=== PATIENT | male | born 1965 | race Caucasian/White ===

== ENCOUNTER 2019-02-15 06:57 | Day surgery (SDC) | payer OTHER, BC ==
[~2019-02-15] VITALS: Ht 165.1 cm; Wt 99.2 kg
[~2019-02-15 06:57] MED LIST: AMLO10 PO; Carvedilol12.5 MG PO; Hydrochlorothia25 MG PO; MELO7.5 PO; NIFE90ER PO; SPIR25 PO; VENL37.5ER PO; Zestril40 MG PO
--- NOTE | 2019-02-15 07:40 | NUR ---
PT ADMITTED TO [facility]. AGREES WITH PLANNED SURGER. LUNG SOUNDS CLEAR.
--- NOTE | 2019-02-15 09:46 | NUR ---
Discharge instructions reviewed with patient. Patient verbalizes understanding. Copy given to patient to take home. Discharged via wheelchair to private car for ride home WITH SPOUSE.PATIENT AMBUBULATING STEADY ON FEET, DENEIES QUESTIONS OR CONCERNS R/T DISCHARGE
== END 2019-02-15 23:23 | disposition home or self-care (01) ==
LOC: ORSCMMR 06:57 → ORD 08:15 → ORSCMMR 08:15
PROVIDERS: Orthopaedic Surgery
PROC: 01N50ZZ Release Median Nerve, Open Approach (ICD-10-PCS; principal; 2019-02-15 08:15)
DX: G56.01 Carpal tunnel syndrome, right upper limb (principal)
CPT/HCPCS: J0690; J2250; J2704; J3010; J7120

== ENCOUNTER 2021-01-15 07:49 | Day surgery (SDC) | payer OTHER ==
[~2021-01-15] VITALS: Ht 167.6 cm; Wt 100.0 kg
[~2021-01-15 07:49] MED LIST changes: +OMEP20ER PO
== END 2021-01-15 10:01 | disposition home or self-care (01) ==
LOC: ORSCSDS 07:49
PROVIDERS: Surgery
PROC: 0DBP8ZX Excision of Rectum, Via Natural or Artificial Opening Endoscopic, Diagnostic (ICD-10-PCS; principal; 2021-01-15 09:15)
PROC: 0DBK8ZX Excision of Ascending Colon, Via Natural or Artificial Opening Endoscopic, Diagnostic (ICD-10-PCS; principal; 2021-01-15 09:15)
DX: R10.9 Unspecified abdominal pain (principal); Z87.19 Personal history of other diseases of the digestive system; K62.1 Rectal polyp; D12.2 Benign neoplasm of ascending colon; K57.30 Diverticulosis of large intestine without perforation or abscess without bleeding; I10 Essential (primary) hypertension; Z72.0 Tobacco use; E66.9 Obesity, unspecified; Z68.36 Body mass index [BMI] 36.0-36.9, adult; Z79.899 Other long term (current) drug therapy
CPT/HCPCS: 88305; J2704; J7120

== ENCOUNTER → 2022-03-01 | Outpatient (CLI) | payer OTHER | END | disposition home or self-care (01) | LOC: LAB SHORT 14:57 → LAB 14:57 | DX: R82.90 Unspecified abnormal findings in urine (principal) | CPT/HCPCS: 87086 ==

== ENCOUNTER → 2025-01-31 | Outpatient (CLI) | payer OTHER | LOC: LAB 16:34 → LAB SHORT 16:34 | DX: N39.0 Urinary tract infection, site not specified (principal) | CPT/HCPCS: 87086 ==